=== PATIENT | male | born 1995 | race Caucasian/White ===

== ENCOUNTER 2020-07-28 10:42 | Emergency (ER) | payer MEDICAID ==
[~2020-07-28] VITALS: Ht 170.2 cm; Wt 87.5 kg
--- NOTE | 2020-07-28 10:42 | NUR ---
PATIENT [facility] BLS TO ER BED 05
--- NOTE | 2020-07-28 10:47 | NUR ---
DR. EVERETT EVALUATING PT AT BEDSIDE
[2020-07-28 10:48] VITALS: BP 135/87
--- NOTE | 2020-07-28 10:55 | NUR ---
PT SEEN AND D/C BY DR. EVERETT, NO NURSING CARE GIVEN
--- NOTE | 2020-07-28 10:55 | NUR ---
Patient discharged with v/s stable. Written and verbal after care instructions given and explained. Patient verbalized understanding. Ambulatory with steady gait. All questions addressed prior to discharge. Advised to follow up with PMD.
== END 2020-07-28 10:55 | disposition home or self-care (01) ==
LOC: MED 10:42
DX: F43.20 Adjustment disorder, unspecified (principal)
CPT/HCPCS: 99283